=== PATIENT | female | born 1960 | race Caucasian/White ===

== ENCOUNTER → 2016-03-25 | Outpatient (CLI) | payer OTHER ==
--- NOTE | 2016-03-25 12:32 | MA ---
Diagnostic Digital Mammogram left Breast Clinical Indications: Follow up possible nodular density. Technique: Compression was obtained in CC, and 90-degree lateral views of the left breast. This exam ination is processed by the [employer] computer-aided detection system. Comparison: March 17, 2016; February 19, 2015; and studies dating back to May 05, 2005 Breast density: C; The breasts are heterogeneously dense, which may obscure small masses. Findings: CAD was reviewed. The density of concern appears to represent normal overlapping breast parenchymal tissue. No signifi cant abnormality seen. This is actually stable dating back to the 2005 exam. Impression: Benign findings. BI-RADS 2. These findings were communicated with the patient. Recommendation: Routine annual mammography is recommended in one year. Dense mammographic pattern limits the sensitivity of mammography in this patient. If there is a clini abner palpable abnormality, recommend additional imaging with ultrasound, if clinically indicated. [facility] will send a result letter to the patient. Negative mammography should not preclude additional workup of a clinically suspicious finding.
== END ==
LOC: FIMAGING 11:49
PROVIDERS: ATTEND Family Medicine
DX: R92.2 Inconclusive mammogram (principal)
CPT/HCPCS: G0206